=== PATIENT | male | born 1985 | race Caucasian/White ===

== ENCOUNTER 2017-11-30 16:10 | Emergency (ER) | payer OTHER ==
[~2017-11-30] VITALS: Ht 180.3 cm; Wt 88.5 kg
[2017-11-30 16:41] LABS: ABSOLUTE EOSINOPHILS 0.1 thou/uL (0.0-0.7); ABSOLUTE LYMPHOCYTES 0.9 thou/uL (0.8-5.3); ABSOLUTE MONOCYTES 0.4 thou/uL (0.0-1.2); BASOPHILS 0.7 %; EOSINOPHILS 1.5 %; HEMATOCRIT 44.6 % (42.0-52.0); HEMOGLOBIN 15.7 gm/dL (14.0-18.0); MCH 31.5 pg (26.0-34.0); MCHC 35.3 g/dL (28.0-37.0); MCV 89.4 fL (80.0-100.0); MONOCYTES 7.9 %; MPV 7.9 fl. (7.2-11.1); NUCLEATED RBCS 0 /100WBC; PLATELET COUNT* 187 thou/uL (150-400); POLYS 73.9 %; RBC 4.99 mil/uL (4.50-6.00); RDW-CV 13.3 % (10.5-14.5); WBC 5.4 thou/uL (4.0-11.0)
[2017-11-30 16:48] LABS: ANION GAP 7 mmol/L (7-16); BUN 17 mg/dL (7-18); CALCIUM 8.6 mg/dL (8.5-10.1); CHLORIDE 106 mmol/L (98-107); CO2 28 mmol/L (21-32); GLUCOSE 101 mg/dL (70-99); POTASSIUM 3.6 mmol/L (3.5-5.1); SODIUM 141 mmol/L (136-145)
[2017-11-30 16:59] LABS: ALBUMIN 3.9 g/dL (3.4-5.0); ALKALINE PHOSPHATASE 51 U/L (46-116); LIPASE 95 U/L (73-393); NT-PRO BRAIN NAT PEPTIDE 33 pg/mL (<300); SGOT 21 U/L (15-37); SGPT 24 U/L (30-65); TOTAL BILIRUBIN 2.9 mg/dL (<0.1-1.0); TOTAL PROTEIN 7.1 g/dL (6.4-8.2); TROPONIN-I LEVEL <0.06 ng/mL (<0.06)
[2017-11-30 19:20] VITALS: BP 111/69
--- NOTE | 2017-12-01 12:42 | EKG ---
[place] [address] ELECTROCARDIOGRAM REPORT Name: MARLYN WILLIAM Room: [facility]#: [id number] Admission: 11/30/17 Attend Phys: Discharge: 11/30/17 Date of : 83 Report #: [id number] THIS REPORT FOR: //name// [facility] ED Test Date: 2017-11-30 Test Time: 16:14:44 Pat Name: MARLYN WILLIAM Department: Room: Gender: Dental Receptionist: Kenzie FUCHS : 1985 Requested By: Melvin Judd Order Number: [id number] MD: Chao Salgado Measurements Intervals [place] Rate: 61 P: 66 FL: 137 QRS: 56 QRSD: 93 T: 32 QT: 394 QTc: 397 Interpretive Statements Sinus rhythm RSR' in V1 or V2, probably normal variant Baseline wander in lead(s) V3 No previous ECG available for comparison Electronically Signed On 12-01-2017 12:42:39 CDT by Chao Salgado [email or web address] <ELECTRONICALLY SIGNED> By: Chao Salgado MD, [facility] 12/01/17 1242 1614 161 Chao Salgado MD, FACC /EPI
== END 2017-11-30 19:22 | disposition home or self-care (01) ==
LOC: M.ERS 16:10
PROVIDERS: Emergency Medicine
DX: R07.89 Other chest pain (principal)